=== PATIENT | female | born 1965 | race Caucasian/White ===

== ENCOUNTER 2019-05-15 07:22 | Day surgery (SDC) | payer OTHER | END 2019-05-15 23:11 | disposition home or self-care (01) | LOC: MOI US 07:22 → MOI MAM 07:45 → MOI US 23:11 | DX: D24.1 Benign neoplasm of right breast (principal); N60.81 Other benign mammary dysplasias of right breast | CPT/HCPCS: 19083; 77065; 88305; A4648 ==

== ENCOUNTER 2019-05-17 08:44 | Day surgery (SDC) | payer OTHER | END 2019-05-17 22:47 | disposition home or self-care (01) | LOC: MOI MAM 08:44 | DX: N60.11 Diffuse cystic mastopathy of right breast (principal); N62 Hypertrophy of breast | CPT/HCPCS: 19081; 88305 ==

== ENCOUNTER → 2019-09-18 | Outpatient (CLI) | payer OTHER, SELFPAY | END | disposition home or self-care (01) | LOC: LAB SHORT 08:49 → PLD 08:49 | DX: L72.11 Pilar cyst (principal) | CPT/HCPCS: 88304 ==